=== PATIENT | female | born 1950 | race Caucasian/White ===

== ENCOUNTER → 2023-12-17 09:37 | Outpatient (REF) | payer MEDICARE, OTHER, SELFPAY ==
[2023-12-17 12:19] LABS: % Basophils 0.5 % (0-2); % Eosinophils 3.3 % (0-6); % Immature Granulocytes 0.3 % (0-0.5); % Monocytes 8.5 % (1.7-9.3); % Neutrophils 61.4 % (42.2-75.2); Absolute Eosinophils 0.2 10^3/uL (0-0.7); Absolute Lymphocytes 1.7 10^3/uL (1.2-3.4); Absolute Monocytes 0.5 10^3/uL (0.1-0.6); Absolute Neutrophils 3.9 10^3/uL (1.4-6.5); Hematocrit 44.9 % (37.0-47.0); Hemoglobin 15.3 g/dL (12.0-16.0); Mean Corp Hgb Conc. 34.1 g/dL (33.0-37.0); Mean Corpuscular Hgb 29.4 pg (27.0-31.0); Mean Corpuscular Volume 86.2 fL (81.0-99.0); Mean Platelet Volume 10.5 fL (7.4-10.4); Nucleated Red Blood Cells % 0 %; Platelet Count 220 10^3/uL (130-400); Red Blood Cell Count 5.21 10^6/uL (4.20-5.40); Red Cell Dist. Width 12.7 % (11.5-14.5); White Blood Cell Count 6.4 10^3/uL (4.8-10.8)
[2023-12-17 13:22] LABS: Glycohemoglobin (HgbA1c) 6.1 % (4.0-5.6)
[2023-12-17 13:27] LABS: ALT (SGPT) 44 U/L (0-35); AST (SGOT) 50 U/L (14-36); Albumin 4.3 g/dl (3.5-5.0); Alkaline Phosphatase 65 U/L (38-126); Blood Urea Nitrogen 19 mg/dl (7-17); Calcium 9.4 mg/dl (8.4-10.2); Carbon Dioxide 26 mmol/L (22-30); Chloride 101 mmol/L (98-107); Direct Bilirubin 0.3 mg/dl (0.0-0.4); Glucose 143 mg/dl (70-99); HDL Cholesterol 71 mg/dl; LDL Cholesterol, Calculated 148 mg/dl; Potassium 4.5 mmol/L (3.5-5.1); Sodium 139 mmol/L (135-145); Total Bilirubin 0.9 mg/dl (0.2-1.3); Total Cholesterol 237 mg/dl (50-199); Triglyceride 92 mg/dl (10-149); Very Low Density Lipoprotein 18 mg/dl (0-30); eGFR > 60.00
[2023-12-17 13:41] LABS: TSH Reflex To Free T4 0.85 uIU/ml (0.47-4.68)
== END ==
LOC: HWLAB 09:37
PROVIDERS: ATTENDING PHYSICIAN Internal Medicine Gastroenterology; FAMILY PHYSICIAN Family Medicine
DX: K76.0 Fatty (change of) liver, not elsewhere classified (principal); I10 Essential (primary) hypertension; E03.9 Hypothyroidism, unspecified; R73.03 Prediabetes
CPT/HCPCS: 36415; 80053; 80061; 82248; 83036; 84443; 85025

== ENCOUNTER → 2024-01-02 08:42 | Outpatient (REF) | payer MEDICARE, OTHER, SELFPAY ==
[2024-01-02 13:52] LABS: Iron 116 ug/dl (37-170)
[2024-01-02 14:04] LABS: Percent Saturation 34 % (20-50); Total Iron Binding Capacity 339 ug/dl (265-497)
[2024-01-02 14:19] LABS: Ferritin 56.6 ng/ml (11.1-264.0)
[2024-01-02 23:34] LABS: IgA 324 mg/dl (70-400)
[2024-01-03 20:24] LABS: Hepatitis A IgM Antibody Negative (Negative)
[2024-01-03 20:31] LABS: Hepatitis B Surface Antigen Negative (Negative)
[2024-01-03 20:48] LABS: Hepatitis B Surface Antibody Positive
[2024-01-03 21:48] LABS: Hepatitis C Antibody Negative (Negative)
[2024-01-04 00:21] LABS: Hepatitis A Antibody, Total Negative (Negative)
[2024-01-05 02:10] LABS: F-Actin Antibody IgG 10 Units (0-19); Mitochondrial M2 Ab, IgG 3.2 Units (0.0-24.9)
[2024-01-05 09:21] LABS: ANA, IgG Reflex to HEp-2 None Detected (None Detected)
[2024-01-05 09:57] LABS: Ceruloplasmin 23 mg/dL (16-45)
== END ==
LOC: HWRAD 08:42
PROVIDERS: ATTENDING PHYSICIAN Internal Medicine Gastroenterology; FAMILY PHYSICIAN Family Medicine
DX: K76.0 Fatty (change of) liver, not elsewhere classified (principal); R79.89 Other specified abnormal findings of blood chemistry
CPT/HCPCS: 36415; 76700; 82103; 82104; 82390; 82728; 82784; 83516; 83540; 83550; 86015; 86038; 86231; 86381; 86706; 86708; 86709; 86803; 87340

== ENCOUNTER → 2024-01-10 06:27 | Day surgery (SDC) | payer MEDICARE, OTHER, SELFPAY | LOC: GI 06:27 | PROVIDERS: ATTENDING PHYSICIAN Internal Medicine Gastroenterology | DX: Z12.11 Encounter for screening for malignant neoplasm of colon (principal); K63.89 Other specified diseases of intestine; K64.8 Other hemorrhoids; K44.9 Diaphragmatic hernia without obstruction or gangrene; K22.2 Esophageal obstruction; K22.70 Barrett's esophagus without dysplasia; K22.89 Other specified disease of esophagus; D12.0 Benign neoplasm of cecum; D12.2 Benign neoplasm of ascending colon; Z86.0101 Personal history of adenomatous and serrated colon polyps | CPT/HCPCS: 45385; 45380; 43239; 88305; 88342 ==

== ENCOUNTER → 2024-04-01 08:20 | Outpatient (REF) | payer MEDICARE, OTHER, SELFPAY ==
[2024-04-01 09:33] LABS: % Basophils 0.6 % (0-2); % Eosinophils 2.8 % (0-6); % Immature Granulocytes 0.3 % (0-0.5); % Lymphocytes 24.1 % (20.5-51.1); % Monocytes 8.1 % (1.7-9.3); % Neutrophils 64.1 % (42.2-75.2); Absolute Basophils 0.1 10^3/uL (0-0.2); Absolute Eosinophils 0.2 10^3/uL (0-0.7); Absolute Lymphocytes 1.9 10^3/uL (1.2-3.4); Absolute Monocytes 0.7 10^3/uL (0.1-0.6); Absolute Neutrophils 5.1 10^3/uL (1.4-6.5); Hematocrit 47.8 % (37.0-47.0); Hemoglobin 15.6 g/dL (12.0-16.0); Mean Corp Hgb Conc. 32.6 g/dL (33.0-37.0); Mean Corpuscular Hgb 28.4 pg (27.0-31.0); Mean Corpuscular Volume 87.1 fL (81.0-99.0); Mean Platelet Volume 9.9 fL (7.4-10.4); Nucleated Red Blood Cells % 0 %; Platelet Count 242 10^3/uL (130-400); Red Blood Cell Count 5.49 10^6/uL (4.20-5.40); Red Cell Dist. Width 12.8 % (11.5-14.5)
[2024-04-01 10:27] LABS: ALT (SGPT) 44 U/L (0-35); AST (SGOT) 48 U/L (14-36); Albumin 4.3 g/dl (3.5-5.0); Alkaline Phosphatase 67 U/L (38-126); Blood Urea Nitrogen 17 mg/dl (7-17); Calcium 9.4 mg/dl (8.4-10.2); Carbon Dioxide 27 mmol/L (22-30); Chloride 99 mmol/L (98-107); Glucose 133 mg/dl (70-99); HDL Cholesterol 64 mg/dl; LDL Cholesterol, Calculated 143 mg/dl; Potassium 4.4 mmol/L (3.5-5.1); Sodium 137 mmol/L (135-145); Total Bilirubin 0.8 mg/dl (0.2-1.3); Total Cholesterol 229 mg/dl (50-199); Total Protein 7.2 g/dl (6.3-8.2); Triglyceride 110 mg/dl (10-149); Very Low Density Lipoprotein 22 mg/dl (0-30); eGFR > 60.00
[2024-04-01 10:43] LABS: Glycohemoglobin (HgbA1c) 6.3 % (4.0-5.6)
[2024-04-01 10:55] LABS: TSH Reflex To Free T4 0.91 uIU/ml (0.47-4.68)
== END ==
LOC: HWLAB 08:20
PROVIDERS: ATTENDING PHYSICIAN Family Medicine
DX: R73.03 Prediabetes (principal); E78.00 Pure hypercholesterolemia, unspecified; I10 Essential (primary) hypertension; E03.9 Hypothyroidism, unspecified
CPT/HCPCS: 36415; 80053; 80061; 83036; 84443; 85025

== ENCOUNTER → 2024-11-11 08:25 | Outpatient (REF) | payer MEDICARE, OTHER, SELFPAY ==
[2024-11-11 11:13] LABS: TSH 9.00 uIU/ml (0.47-4.68)
== END ==
LOC: HWLAB 08:25
PROVIDERS: ATTENDING PHYSICIAN Family Medicine
DX: E03.9 Hypothyroidism, unspecified (principal)
CPT/HCPCS: 36415; 84439; 84443

== ENCOUNTER → 2025-01-01 09:13 | Outpatient (REF) | payer MEDICARE, OTHER, SELFPAY ==
[2025-01-01 13:13] LABS: TSH 1.07 uIU/ml (0.47-4.68)
== END ==
LOC: HWLAB 09:13
PROVIDERS: ATTENDING PHYSICIAN Family Medicine
DX: E03.9 Hypothyroidism, unspecified (principal)
CPT/HCPCS: 36415; 84439; 84443

== ENCOUNTER → 2025-01-20 14:33 | Outpatient (REF) | payer MEDICARE, OTHER, SELFPAY | LOC: MRI 14:33 | PROVIDERS: ATTENDING PHYSICIAN Internal Medicine Gastroenterology; PRIMARYCARE PHYSICIAN Family Medicine | DX: K76.0 Fatty (change of) liver, not elsewhere classified (principal) | CPT/HCPCS: 74181; 76391 ==

== ENCOUNTER → 2025-03-23 08:59 | Outpatient (REF) | payer MEDICARE, OTHER, SELFPAY ==
[2025-03-23 12:50] LABS: Hematocrit 43.4 % (37.0-47.0); Hemoglobin 14.7 g/dL (12.0-16.0); Mean Corp Hgb Conc. 33.9 g/dL (33.0-37.0); Mean Corpuscular Volume 85.3 fL (81.0-99.0); Platelet Count 183 10^3/uL (130-400); Red Cell Dist. Width 12.6 % (11.5-14.5)
[2025-03-23 13:02] LABS: ALT (SGPT) 33 U/L (0-35); AST (SGOT) 30 U/L (14-36); Albumin 3.9 g/dl (3.5-5.0); Alkaline Phosphatase 60 U/L (38-126); Total Protein 6.7 g/dl (6.3-8.2)
== END ==
LOC: HWLAB 08:59
PROVIDERS: ATTENDING PHYSICIAN Internal Medicine Gastroenterology; FAMILY PHYSICIAN Family Medicine
DX: K76.0 Fatty (change of) liver, not elsewhere classified (principal); K22.70 Barrett's esophagus without dysplasia
CPT/HCPCS: 36415; 80076; 85027